=== PATIENT | female | born 1985 | race Caucasian/White ===

== ENCOUNTER 2016-09-29 03:35 | Emergency (ER) | payer OTHER ==
[~2016-09-29] VITALS: Ht 165.1 cm; Wt 137.4 kg
[2016-09-29 03:41] VITALS: BP 147/74
--- NOTE | 2016-09-29 03:52 | NUR ---
AMBULATED TO ER BED 3
[2016-09-29] MEDS ORDERED: METF500T PO (03:55)
--- NOTE | 2016-09-29 03:59 | NUR ---
31 Y/O F W/C/O L NECK PAIN X 3 MTHS ON AND OFF. DENIES ANY CHEST, PAIN, SOB, OR NUMBNESS TO ARMS OR LEGS. SYMETRICAL SMILE. MED HX DM, ANXIETY. BS 265. PT DENIES ANY FALL OR TRAUMA RELATED TO NECK PAIN. PT AAOX 4. BREATHING IS UNLABORED AND CLEAR BILAT
--- NOTE | 2016-09-29 04:00 | NUR ---
Patient being evaluated by physician at bedside.
[2016-09-29] MEDS ORDERED: LORazepam 2 MG/ML VIAL IM ONE (04:05)
--- NOTE | 2016-09-29 04:13 | NUR ---
PT WAS GIVEN [facility] IM, PT ADVISED CANNOT DRIVE SELF HOME. PT STATED HER ROOMMATE IS IN THE LOBBY AND WILL DRIVE HER HOME
[2016-09-29 04:24] VITALS: BP 132/82
--- NOTE | 2016-09-29 04:24 | NUR ---
Patient discharged with v/s stable. Written and verbal after care instructions given and explained. Patient alert, oriented and verbalized understanding of instructions. Ambulatory with steady gait. All questions addressed prior to discharge. ID band removed. Patient advised to follow up with PMD. Rx of XANAX 0.5MG given. Patient educated on indication of medication including possible reaction and side effects. Opportunity to ask questions provided and answered.
== END 2016-09-29 04:24 | disposition home or self-care (01) ==
LOC: MED 03:35
DX: F41.9 Anxiety disorder, unspecified (principal); M54.2 Cervicalgia; R51 Headache; R03.0 Elevated blood-pressure reading, without diagnosis of hypertension; Z79.84 Long term (current) use of oral hypoglycemic drugs
CPT/HCPCS: 96372; 99283; J2060